=== PATIENT | female | born 1960 | race Two or more races ===

== ENCOUNTER 2017-11-01 07:10 | Outpatient (CLI) | payer OTHER ==
[~2017-11-01 07:10] MED LIST: ANGELIQ 0.5 MG/1 TAB PO; PROTONIX40 MG PO; SYNTHROID100 MCG PO; XANAX0.25 MG PO
== END 2017-11-01 07:20 | disposition home or self-care (01) ==
LOC: LAB 07:10
DX: D64.9 Anemia, unspecified (principal); E11.8 Type 2 diabetes mellitus with unspecified complications; E78.2 Mixed hyperlipidemia; I10 Essential (primary) hypertension; E03.9 Hypothyroidism, unspecified; E55.9 Vitamin D deficiency, unspecified

== ENCOUNTER 2017-11-01 08:17 | Outpatient (CLI) | payer OTHER | END 2017-11-01 08:32 | disposition home or self-care (01) | LOC: MAMO-SONO 08:17 | DX: Z12.39 Encounter for other screening for malignant neoplasm of breast (principal); Z12.31 Encounter for screening mammogram for malignant neoplasm of breast ==

== ENCOUNTER → 2018-07-28 | Emergency (ER) | payer OTHER ==
[~2018-07-28] VITALS: Ht 157.5 cm; Wt 52.2 kg
[~2018-07-28] MED LIST changes: +INTESTINEX680 M1 PO; +LEVSIN/SL0.125 MG SL; +LOPERAMIDE2 M1 PO; +PEPCID AC20 MG PO
== END | disposition home or self-care (01) ==
LOC: ER 22:01
DX: K52.89 Other specified noninfective gastroenteritis and colitis (principal)

== ENCOUNTER 2019-05-07 13:30 | Outpatient (CLI) | payer OTHER | END 2019-05-07 13:41 | disposition home or self-care (01) | LOC: SONOGRAMA 13:30 | DX: M70.61 Trochanteric bursitis, right hip (principal) ==

== ENCOUNTER 2019-08-06 11:14 | Outpatient (CLI) | payer OTHER | END 2019-08-06 11:29 | disposition home or self-care (01) | LOC: NUCLEAR 11:14 | DX: M81.0 Age-related osteoporosis without current pathological fracture (principal) ==

== ENCOUNTER 2021-02-01 07:56 | Outpatient (CLI) | payer OTHER | END 2021-02-01 08:01 | disposition home or self-care (01) | LOC: TOM 07:56 | PROVIDERS: ATTEND Internal Medicine Sports Medicine | DX: R10.84 Generalized abdominal pain (principal) ==

== ENCOUNTER 2022-01-30 13:07 | Outpatient (CLI) | payer OTHER | END 2022-01-30 13:21 | disposition home or self-care (01) | LOC: NUCLEAR 13:07 | PROVIDERS: ATTEND Internal Medicine Sports Medicine | DX: M85.80 Other specified disorders of bone density and structure, unspecified site (principal); Z91.018 Allergy to other foods ==

== ENCOUNTER 2022-02-27 13:18 | Outpatient (CLI) | payer OTHER | END 2022-02-27 13:26 | disposition home or self-care (01) | LOC: MAMO-SONO 13:18 | PROVIDERS: ATTEND Internal Medicine Sports Medicine | DX: Z12.39 Encounter for other screening for malignant neoplasm of breast (principal) ==

== ENCOUNTER 2023-08-28 07:33 | Outpatient (CLI) | payer OTHER | END 2023-08-28 07:55 | disposition home or self-care (01) | LOC: TOM 07:33 | PROVIDERS: ATTEND Internal Medicine Sports Medicine | DX: R10.9 Unspecified abdominal pain (principal); R10.30 Lower abdominal pain, unspecified; R10.84 Generalized abdominal pain; R10.13 Epigastric pain; E03.8 Other specified hypothyroidism; E04.1 Nontoxic single thyroid nodule; E04.9 Nontoxic goiter, unspecified ==

== ENCOUNTER → 2024-02-13 08:29 | Outpatient (CLI) | payer OTHER ==
[2024-02-13 09:23] LABS: HEMOGLOBIN 14.3 g/dL (12.0-15.00); MEAN CELL VOLUME 88.3 fL (80.00-100.00); PLATELET COUNT 168 K/uL (150-450); RED BLOOD COUNT 4.76 M/uL (4.00-6.00); RED CELL DISTRIBUTION WIDTH 12.9 % (11.5-14.5)
[2024-02-13 09:57] LABS: URINE APPEARANCE Clear; URINE BILIRRUBIN Negative (NEGATIVE); URINE BLOOD Moderate; URINE COLOR Dark Yellow; URINE GLUCOSE Negative (NEGATIVE); URINE LEUKOCYTE Negative; URINE NITRATE Negative; URINE PROTEIN Negative (NEGATIVE); URINE UROBILINOGEN 0.2 E.U./dl
[2024-02-13 10:01] LABS: URINE BACTERIA 21.4 uL (0.0-1933); URINE EPITHELIAL CELLS 16.6 uL (0.0-38.8); URINE RBC 107.8 uL (0.0-20.8); URINE WBC 18.2 uL (0.0-23.2)
[2024-02-13 10:10] LABS: ALBUMIN 3.9 gm/dL (3.4-5.0); BILIRUBIN TOTAL 0.67 mg/dL (0.3-1.2); CHOL HDL RATIO 3.8 (0-5.0); CREATININE SERUM 0.87 mg/dL (0.55-1.02); GFR 65.97; GLOBULINA 3.2 G/DL (2.4-3.5); POTASSIUM 4.18 mEq/L (3.5-5.1); T4 FREE 1.45 NG/ML (0.76-1.46); TOTAL PROTEIN 7.1 gm/dL (6.4-8.2); TSH 1.64 uIU/mL (0.358-3.74)
[2024-02-13 10:50] LABS: URINE CRYSTALS FEW /HPF
== END | disposition home or self-care (01) ==
LOC: LAB 08:29
PROVIDERS: ATTEND Internal Medicine Sports Medicine
DX: E55.9 Vitamin D deficiency, unspecified (principal)